=== PATIENT | female | born 1980 | race Two or more races ===

== ENCOUNTER 2021-10-23 07:12 | Day surgery (SDC) | payer OTHER | END 2021-10-23 13:30 | disposition home or self-care (01) | LOC: AMB-ENDOS 07:12 → EDBD 14:45 → AMB-ENDOS 14:45 | PROVIDERS: ATTEND Colon & Rectal Surgery | DX: C20 Malignant neoplasm of rectum (principal) ==

== ENCOUNTER 2022-06-26 05:45 | Day surgery (SDC) | payer OTHER ==
[~2022-06-26] VITALS: Ht 170.2 cm; Wt 108.0 kg
[~2022-06-26 05:45] MED LIST: ELIQUIS2.5 MG PO; MAGNESIUM200 MG PO
== END 2022-06-26 11:33 | disposition home or self-care (01) ==
LOC: CIR.AMB 05:45
PROVIDERS: ATTEND Obstetrics & Gynecology Gynecologic Oncology
DX: C52 Malignant neoplasm of vagina (principal); C78.5 Secondary malignant neoplasm of large intestine and rectum; D64.89 Other specified anemias; Z20.822 Contact with and (suspected) exposure to COVID-19; Z88.0 Allergy status to penicillin; Z88.5 Allergy status to narcotic agent; Z88.2 Allergy status to sulfonamides; F17.210 Nicotine dependence, cigarettes, uncomplicated